=== PATIENT | female | born 1930 | race Caucasian/White ===

== ENCOUNTER 2016-11-19 03:36 | Emergency (ER) | payer OTHER ==
[~2016-11-19] VITALS: Ht 165.1 cm; Wt 45.4 kg
[~2016-11-19 03:36] MED LIST: ASPIR 8181 M1 PO; ASPIR 8181 MG PO; CALCIUM 500 +1 EAC5 PO; COLACE100 MG PO; COUMADIN 5 MG TA5 M1 PO; COUMADIN7.5 MG PO; DELTA D3400 UNIT PO; DILTIAZEM 24HR120 M2 PO; DILTIAZEM 24HR240 M2 PO; ENALAPRIL MALEA10 M1 PO; FENTANYL PA25 MCG/HR TRANSDERM; FISH OIL OMEGA1 EAC1 PO; FLOVENT HFA 1110 MCG IH; MACROBID 100 M100 M2 PO; MIRALAX17 GM PO; MONTELUKAST SOD10 MG PO; MULTIVITAMINS1 EAC7 PO; PERCOCET PO; PRAVACHOL40 MG PO; SINGULAIR 10 MG10 M1 PO; TOPROL XL100 MG PO; TYLENOL325 MG PO; ULTRAM 50MG TAB50 MG PO; VENTOLIN HFA 1818 GM INH; VITAMIN D1000 UNI1 PO; [UNRECOGNIZED DRUG - OTHER] PO
[2016-11-19] MEDS ORDERED: CEFDINIR300 MG PO (03:52)
[2016-11-19] MEDS ORDERED: CALCIUM ACETAT667 MG (03:52)
[2016-11-19] MEDS ORDERED: DILTIAZEM 24HR240 M2 PO (03:53)
[2016-11-19] MEDS ORDERED: VASOTEC10 MG (03:53)
[2016-11-19] MEDS ORDERED: TRADJENTA5 MG (03:53)
[2016-11-19] MEDS ORDERED: MIRALAX17 GM PO (03:54)
[2016-11-19] MEDS ORDERED: LOPRESSOR50 PO (03:54)
[2016-11-19] MEDS ORDERED: PRAVACHOL80 MG (03:55)
[2016-11-19] MEDS ORDERED: CENTRUM SILVER1 EAC4 PO (03:55)
[2016-11-19] MEDS ORDERED: PREDNISONE 10 M10 MG PO (03:56)
[2016-11-19] MEDS ORDERED: TYLENOL325 MG PO (03:57)
[2016-11-19] MEDS ORDERED: TUBERSOL1 ML/1 VIA (03:57)
[2016-11-19] MEDS ORDERED: VITAMIN D3400 UNI1 (03:58)
[2016-11-19 03:59] LABS: HEMATOCRIT 35.7 % (37.0-47.0); MCH 28.5 pg (26.0-34.0); MCHC 33.8 g/dL (28.0-37.0); MCV 84.5 fL (80.0-100.0); PLATELET COUNT 401 thou/uL (150-400); RBC 4.22 mil/uL (4.20-5.00); RDW 13.8 % (10.5-14.5); WBC 17.5 thou/uL (4.0-11.0)
[2016-11-19 04:02] LABS: MANUAL DIFF YES
[2016-11-19 04:06] LABS: CALCIUM 9.6 mg/dL (8.5-10.1); CREATININE 0.7 mg/dL (0.6-1.0); POTASSIUM 3.4 mmol/L (3.5-5.1)
[2016-11-19 04:11] LABS: INR 3.1; PROTIME 31.4 Seconds (9.3-11.4)
[2016-11-19 05:41] LABS: ABSOLUTE NEUTROPHILS 14.9 thou/uL (1.4-8.2); ANISOCYTOSIS SLIGHT; METAMYELOCYTES 1 %; MYELOCYTES 2 %; TOTAL CELL COUNT 100
== END 2016-11-19 06:07 ==
LOC: ER 03:36
PROVIDERS: Emergency Medicine
DX: M25.552 Pain in left hip (principal); Z90.710 Acquired absence of both cervix and uterus; I48.91 Unspecified atrial fibrillation; I10 Essential (primary) hypertension; J45.909 Unspecified asthma, uncomplicated; E11.9 Type 2 diabetes mellitus without complications; Z98.890 Other specified postprocedural states; Z88.5 Allergy status to narcotic agent; Z88.2 Allergy status to sulfonamides; F10.99 Alcohol use, unspecified with unspecified alcohol-induced disorder; W18.39XA Other fall on same level, initial encounter; Y93.89 Activity, other specified; Y92.89 Other specified places as the place of occurrence of the external cause; Y99.8 Other external cause status

== ENCOUNTER 2017-08-29 09:45 | Inpatient (IN) | payer OTHER ==
[~2017-08-29] VITALS: Ht 162.6 cm; Wt 41.0 kg
--- NOTE | ~2017-08-29 | EKG ---
[place] [address] [facility] [employer] [facility] [place] [address] ELECTROCARDIOGRAM REPORT Name: RADHAJOHNNIE Room #: 353-P ADM IN M.R.#: [id number] Admission: 08/29/17 Attend Phys: James Rice MD Discharge: Date of : 34 Report #: [id number] THIS REPORT FOR: //name// 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1930 Requested By: Chu Nur Order Number: [id number] MD: Cole Turner Measurements Intervals [place] Rate: 115 P: CA: QRS: 34 QRSD: 90 T: -42 QT: 277 QTc: 383 Interpretive Statements Atrial fibrillation Low voltage, extremity leads Nonspecific ST and T wave abnormality Poor R wave progression Compared to ECG 04/04/2005 12:37:24 Premature ventricular complexes no longer present atrial fibrillation has replaced sinus rhythm Electronically Signed On 08-31-2017 7:27:22 ARMORED CAR DRIVER by Cole Turner [email or web address] <ELECTRONICALLY SIGNED> By: Cole Turner MD, [facility] 08/31/17 0727 1005 1005 Cole Turner MD, [facility] /EPI
[~2017-08-29 09:45] MED LIST changes: +CALCIUM ACETAT667 MG; +CEFDINIR300 MG PO; +CENTRUM SILVER1 EAC4 PO; +LOPRESSOR50 PO; +PRAVACHOL80 MG; +PREDNISONE 10 M10 MG PO; +TRADJENTA5 MG; +TUBERSOL1 ML/1 VIA; +VASOTEC10 MG; +VITAMIN D3400 UNI1
[2017-08-29 09:56] VITALS: BP 125/77
[2017-08-29 10:49] LABS: ABSOLUTE NEUTROPHILS 10.6 thou/uL (1.4-8.2); BASOPHILS 0.5 % (0.0-2.0); EOSINOPHILS 0.1 % (0.0-3.0); HEMATOCRIT 38.6 % (37.0-47.0); HEMOGLOBIN 12.8 gm/dL (12.0-15.0); LYMPHOCYTES 2.6 % (24.0-44.0); MCH 28.7 pg (26.0-34.0); MCHC 33.2 g/dL (28.0-37.0); MCV 86.5 fL (80.0-100.0); MONOCYTES 5.9 % (1.0-8.0); PLATELET COUNT 153 thou/uL (150-400); POLYS 90.9 % (36.0-66.0); RBC 4.46 mil/uL (4.20-5.00); RDW 13.8 % (10.5-14.5); WBC 11.7 thou/uL (4.0-11.0)
[2017-08-29 10:53] LABS: ANION GAP 9 mmol/L (7-16); BUN 20 mg/dL (7-18); CALCIUM 9.2 mg/dL (8.5-10.1); CHLORIDE 104 mmol/L (98-107); CO2 28 mmol/L (21-32); CREATININE 1.2 mg/dL (0.6-1.0); GLUCOSE 260 mg/dL (74-106); POTASSIUM 3.8 mmol/L (3.5-5.1); SODIUM 141 mmol/L (136-145)
[2017-08-29 10:56] LABS: APTT 38.5 Seconds (24.5-32.8); INR 3.3; PROTIME 33.3 Seconds (9.3-11.4)
[2017-08-29 11:01] LABS: TROPONIN-I < 0.04 ng/mL (<0.06)
[2017-08-29 12:29] VITALS: BP 115/64
[2017-08-29 12:40] LABS: URINE BILIRUBIN NEGATIVE (Negative); URINE BLOOD 3+ (Negative); URINE CLARITY CLEAR; URINE COLOR YELLOW; URINE GLUCOSE-RANDOM* NEGATIVE (Negative); URINE KETONES NEGATIVE (Negative); URINE LEUKOCYTES NEGATIVE (Negative); URINE NITRITE NEGATIVE (Negative); URINE PROTEIN (DIPSTICK) NEGATIVE (Negative); URINE SPECIFIC GRAVITY 1.015 (1.005-1.035); URINE UROBILINOGEN 0.2 E.U./dl (0.2-1.0)
[2017-08-29 12:41] VITALS: BP 116/58
[2017-08-29 13:39] LABS: CASTS None Seen /LPF (None Seen); CRYSTALS None Seen /LPF (None Seen); SQUAMOUS 0-3 Few /LPF (0-3); URINE RBC >20 Many /HPF (0-2); URINE WBC 0-5 Rare /HPF (0-5)
[2017-08-29 13:40] LABS: BACTERIA 1-9 Few /HPF (None Seen)
[2017-08-29] MEDS ORDERED: COUMADIN 5 MG TA5 M1 PO (14:22)
[2017-08-29] MEDS ORDERED: CALCIUM 600 +1 EAC1 PO (14:24)
[2017-08-29] MEDS ORDERED: VENTOLIN HFA 1818 GM INH (14:25)
[2017-08-29] MEDS ORDERED: MIRALAX17 GM PO (14:25)
[2017-08-29] MEDS ORDERED: FLOVENT HFA 4444 MCG INH (14:26)
[2017-08-29] MEDS ORDERED: ESTRADIOL 1 MG T1 M1 PO (14:26)
[2017-08-29] MEDS ORDERED: TRADJENTA5 MG PO (14:27)
[2017-08-29] MEDS ORDERED: TRAMADOL 50 MG50 MG PO (14:28)
[2017-08-29] MEDS ORDERED: CARDIZEM CD120 MG PO (14:29)
[2017-08-29 15:26] VITALS: BP 99/65
[2017-08-29 20:20] VITALS: BP 120/60
[2017-08-29 23:30] VITALS: BP 118/64
[2017-08-30 04:10] VITALS: BP 124/80
[2017-08-30 08:33] VITALS: BP 134/84
[2017-08-30 17:03] VITALS: BP 134/76
[2017-08-30 20:07] VITALS: BP 130/65
[2017-08-31 03:47] VITALS: BP 123/77
[2017-08-31 06:23] LABS: PROTIME 11.6 Seconds (9.3-11.4)
[2017-08-31 06:28] LABS: CALCIUM 9.4 mg/dL (8.5-10.1); CREATININE 0.8 mg/dL (0.6-1.0)
[2017-08-31 06:32] LABS: INR 1.1
[2017-08-31 08:20] VITALS: BP 120/69
[2017-08-31 09:31] LABS: CALCIUM 9.5 mg/dL (8.5-10.1); CREATININE 0.8 mg/dL (0.6-1.0)
[2017-08-31 14:03] VITALS: BP 149/88
[2017-08-31 16:00] VITALS: BP 135/86
[2017-08-31 20:20] VITALS: BP 140/83
[2017-09-01 05:20] VITALS: BP 138/73
[2017-09-01 09:02] VITALS: BP 127/59
[2017-09-01 11:35] VITALS: BP 116/62
[2017-09-01 17:23] VITALS: BP 140/83
[2017-09-01 20:15] VITALS: BP 129/78
[2017-09-02 04:25] VITALS: BP 118/71
[2017-09-02 07:08] VITALS: BP 145/86
[2017-09-02] MEDS ORDERED: PREDNISONE 10 M10 MG PO (07:51)
[2017-09-02] MEDS ORDERED: CEFDINIR300 MG PO (07:51)
[2017-09-02 11:08] VITALS: BP 132/69
[2017-09-02 12:34] VITALS: BP 132/69
[2017-09-02 13:19] VITALS: BP 132/69
== END 2017-09-02 14:11 | disposition home health service (06) | DRG 291 ==
LOC: ER 09:45 → 3W 11:43 → EROBS 11:43 → 3W 12:42
PROVIDERS: Family Medicine; Nurse Practitioner
DX: I11.0 Hypertensive heart disease with heart failure (principal); N17.0 Acute kidney failure with tubular necrosis; I50.23 Acute on chronic systolic (congestive) heart failure; I48.91 Unspecified atrial fibrillation; J22 Unspecified acute lower respiratory infection; R53.81 Other malaise; E87.6 Hypokalemia; M81.0 Age-related osteoporosis without current pathological fracture; J45.909 Unspecified asthma, uncomplicated; E11.9 Type 2 diabetes mellitus without complications; F10.10 Alcohol abuse, uncomplicated; Z88.2 Allergy status to sulfonamides; Z88.6 Allergy status to analgesic agent; Z79.899 Other long term (current) drug therapy; Z90.710 Acquired absence of both cervix and uterus
CPT/HCPCS: 10879

== ENCOUNTER → 2019-10-03 | Outpatient (CLI) | payer OTHER ==
[~2019-10-03] MED LIST changes: +CALCIUM 600 +1 EAC1 PO; +CARDIZEM CD120 MG PO; +ESTRADIOL 1 MG T1 M1 PO; +FLOVENT HFA 4444 MCG INH; +TRADJENTA5 MG PO; +TRAMADOL 50 MG50 MG PO
== END ==
LOC: SJCVC 10:46
DX: R94.31 Abnormal electrocardiogram [ECG] [EKG] (principal); I11.9 Hypertensive heart disease without heart failure; I48.21 Permanent atrial fibrillation; E78.5 Hyperlipidemia, unspecified; Z79.01 Long term (current) use of anticoagulants; J45.909 Unspecified asthma, uncomplicated; Z90.710 Acquired absence of both cervix and uterus; Z79.899 Other long term (current) drug therapy; Z86.73 Personal history of transient ischemic attack (TIA), and cerebral infarction without residual deficits

== ENCOUNTER 2020-03-31 13:17 | Inpatient (IN) | payer OTHER ==
[~2020-03-31] VITALS: Ht 167.6 cm; Wt 42.9 kg
--- NOTE | ~2020-03-31 | EMS ---
[address] [address] EMS Patient Care Report Name: JOHNNIE GARCIA Room #: REG Daniel#: [id number] Admission: 03/31/20 Attend Phys: Discharge: Date of : 32 Report #: [id number] THIS REPORT FOR: //name// Report Transmitted: 03/31/2020 13:56 EMS Care Summary [place], [place]/[facility] Incident [id number] @ 03/31/2020 12:47 Incident Location [address] Patient JOHNNIE GARCIA Female, 89 Years 1930 Patient Address [address] [place] [address] [address] [place] [address] Patient History Asthma, Patient Allergies Codeine,Sulfa, Patient Medications Metoprolol, Ventolin, Flovent, Eliquis, Chief Complaint ALTERED LEVEL OF CONSCIOUSNESS Disposition Transported No Lights/[place] Dispatch Reason Sick Person Transported To [place] Narrative M528 ARRIVES TO FIND 89 Y/O F PT "NOT ACTING RIGHT" PER FAMILY ON SCENE. FAMILY STATES THEY CHECKED ON HER THIS MORNING AND SHE WAS "TALKING GIBBERISH" PT LAST SEEN NORMAL AT 10PM LAST NIGHT. [address] [address] EMS Patient Care Report Name: JOHNNIE GARCIA Room #: REG Holly.#: [id number] Admission: 03/31/20 Attend Phys: Discharge: Date of : 32 Report #: [id number] ASSESSMENTS AND TREATMENTS NOTED. 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 PT MOVED TO AMBULANCE. PT TRANSPORTED. M528 ARRIVES AT DESTINATION. PT MOVED TO ROOM IN ED. PT MOVED TO BED IN ROOM VIA DRAWSHEET METHOD. PT CARE TRANSFERRED. M528 RETURNS TO SERVICE. Initial Vitals @12:58P: 165,BP: 114/70,CO: 2,SpO2: 93, @13:11P: 150,R: 22,BP: 137/90,Pain: 0/10,GCS: 14,SpO2: 100,Revised Trauma: 12, @12:57P: 156,R: 22,Pain: 0/10,GCS: 14,Glucose: 180,CO: 2,SpO2: 88, Assessments @12:57MENTAL:Confused,SKIN:Cold,HEENT:LUNG SOUNDS:ABDOMEN:PELVIS//GI:EXTREMITIES:Right Arm: Weakness,Left Arm: Weakness,Left Leg: Weakness,Right Leg: Weakness,PULSE:NEURO:@13:07MENTAL:Confused,SKIN:Cold,HEENT:Head/Face: No Abnormalities,Eyes: No Abnormalities,Neck/Airway: No Abnormalities,LUNG SOUNDS:General: No Abnormalities,Left Upper: No Abnormalities,Right Upper: No Abnormalities,Left Lower: No Abnormalities,Right Lower: No Abnormalities,ABDOMEN:General: No Abnormalities,Left Upper: No Abnormalities,Right Upper: No Abnormalities,Left Lower: No Abnormalities,Right Lower: No Abnormalities,PELVIS//GI:No Abnormalities,EXTREMITIES:Left Leg: Weakness,Right Leg: Weakness,Left Arm: Weakness,Right Arm: Weakness,PULSE:NEURO:No Abnormalities, Impression Altered Mental Status Procedures @12:57ALS AssessmentResponse: UnchangedSucceeded@13:03Saline Lock 0cc (20 ga) Site: Antecubital-LeftResponse: UnchangedFailed@12:583-Lead ECGResponse: UnchangedSucceeded@13:05Saline Lock 0cc (20 ga) Site: Forearm-RightResponse: UnchangedSucceeded@13:00Oxygen FlowRate: 6 Device: Nasal Cannula (NC) Response: ImprovedSucceeded Timeline 12:46,Call Received 12:46,Dispatch Notified 12:47,Dispatched 12:50,En Route 12:53,On Scene 12:55,At Patient 12:57,ALS Assessment,Response: UnchangedSucceeded, 12:57,BP: / M,PULSE: 156,RR: 22 R,SPO2: 88 Ox,ETCO2: ,B,PAIN: 0,GCS: 14, 12:58,3-Lead ECG,Response: UnchangedSucceeded, 12:58,BP: 114/70 M,PULSE: 165,RR: R,SPO2: 93 Ox,ETCO2: ,BG: ,PAIN: ,GCS: , 13:00,Oxygen FlowRate: 6 Device: Nasal Cannula (NC) Response: [facility] [address] [place] [address] EMS Patient Care Report Name: RADHAJOHNNIE Room #: [facility] SHALOM Sanchez#: [id number] Admission: 03/31/20 Attend Phys: Discharge: Date of : 32 Report #: [id number] 13:03,Saline Lock 0cc 20 ga Site: Antecubital-Left,Response: UnchangedFailed, 13:05,Saline Lock 0cc 20 ga Site: Forearm-Right,Response: UnchangedSucceeded, 13:06,Depart Scene 13:11,BP: 137/90 M,PULSE: 150,RR: 22 R,SPO2: 100 Ox,ETCO2: ,BG: ,PAIN: 0,GCS: 14, 13:12,At Destination 13:27,Call Closed Disclaimer v1.1 Copyright 2020 [employer] This EMS Care Summary contains data elements from the applicable legal record (which may be displayed differently). It is designed to provide pertinent information for the following purposes: continuity of care, clinical quality, and state data reporting. The complete legal record is available to ED staff and administrators of the receiving hospital in [facility]'s Patient Tracker. All data is provided "as is."
[2020-03-31 13:26] VITALS: BP 119/92
[2020-03-31 13:51] LABS: ABSOLUTE NEUTROPHILS 6.2 thou/uL (1.4-8.2); BASOPHILS 0.8 % (0.0-2.0); EOSINOPHILS 0.3 % (0.0-3.0); HEMATOCRIT 42.6 % (37.0-47.0); LYMPHOCYTES 15.1 % (24.0-44.0); MCH 29.7 pg (26.0-34.0); MCHC 32.8 g/dL (28.0-37.0); MCV 90.5 fL (80.0-100.0); MONOCYTES 11.1 % (1.0-8.0); PLATELET COUNT 225 thou/uL (150-400); POLYS 72.7 % (36.0-66.0); RDW 15.1 % (10.5-14.5); WBC 8.5 thou/uL (4.0-11.0)
[2020-03-31 14:04] LABS: CREATININE 1.2 mg/dL (0.6-1.0); POTASSIUM 4.6 mmol/L (3.5-5.1)
[2020-03-31 14:09] LABS: URINE BLOOD 3+ (Negative); URINE CLARITY SL CLOUDY; URINE COLOR YELLOW; URINE GLUCOSE-RANDOM* NEGATIVE (Negative); URINE KETONES TRACE (Negative); URINE NITRITE-REFLEX NEGATIVE (Negative); URINE PROTEIN (DIPSTICK) 2+ (Negative); URINE UROBILINOGEN 0.2 E.U./dl (0.2-1.0)
[2020-03-31 14:15] LABS: MAGNESIUM 2.3 mg/dL (1.8-2.4); TROPONIN-I 0.14 ng/mL (<0.06)
[2020-03-31 14:16] LABS: URINE LEUKOCYTES-REFLEX 1+ (Negative)
[2020-03-31 14:17] LABS: ICTOTEST (BILI CONFIRMATORY) Negative (Negative); URINE BILIRUBIN NEGATIVE (Negative)
[2020-03-31 14:21] LABS: BACTERIA-REFLEX >30 Many /HPF (None Seen); CASTS None Seen /LPF (None Seen); CRYSTALS None Seen /LPF (None Seen); SQUAMOUS 0-3 Few /LPF (0-3); URINE WBC-REFLEX 6-15 Few /HPF (0-5)
[2020-03-31 14:22] LABS: MUCUS 0-3 Light strn/LPF (None Seen); URINE RBC >20 Many /HPF (0-2)
[2020-03-31 15:02] LABS: INR 1.1; PROTIME 11.7 Seconds (9.3-11.4)
[2020-03-31 15:32] LABS: BE(vivo) -3.4 mmol/L (-2 to +3); PCO2 28.1 mmHg (35.0-45.0); PO2 65.4 mmHg (80.0-100.0); pH 7.449 (7.360-7.450)
[2020-03-31] MEDS ORDERED: JANTOVEN5 MG PO (15:44)
[2020-03-31] MEDS ORDERED: METOPROLOL SUCC25 M1 PO (15:45)
[2020-03-31] MEDS ORDERED: DILT-XR240 M1 PO (15:46)
[2020-03-31] MEDS ORDERED: TIADYLT ER120 MG PO (15:49)
[2020-03-31 16:14] VITALS: BP 108/64
[2020-03-31 19:05] VITALS: BP 106/70
--- NOTE | 2020-03-31 19:25 | NUR ---
VERBAL ORDER PER DR. CARUSO TO CONTINUE SOFT RESTRAINTS THROUGH THE NIGHT AND HE WILL SEE THE PATIENT IN THE MORNING. HE ORDERED 40MG OF GEODON PO IF NEEDED ON THE FLOOR.
[2020-04-01 04:21] VITALS: BP 124/61
[2020-04-01 08:16] VITALS: BP 121/61
[2020-04-01 08:29] LABS: HEMATOCRIT 40.6 % (37.0-47.0); HEMOGLOBIN 12.8 gm/dL (12.0-15.0); MCH 29.4 pg (26.0-34.0); MCHC 31.6 g/dL (28.0-37.0); MCV 92.9 fL (80.0-100.0); RBC 4.37 mil/uL (4.20-5.00); RDW 15.6 % (10.5-14.5); WBC 9.4 thou/uL (4.0-11.0)
[2020-04-01 08:52] LABS: CALCIUM 9.3 mg/dL (8.5-10.1); POTASSIUM 3.5 mmol/L (3.5-5.1)
[2020-04-01 12:15] VITALS: BP 132/65
[2020-04-01 15:44] VITALS: BP 127/63
--- NOTE | 2020-04-01 18:20 | NUR ---
ASSUMED PATIENT CARE AT 0700. ALERT. CONFUSED, RESTLESS. RESTRAINT OFF AT 1500. PATIENT STILL ON CARDIEM GTT AT 5ML/HR. REFUSED EAT AND DRINK. NOT TOWARDS POC GOALS.
[2020-04-01 19:32] VITALS: BP 113/72
[2020-04-02 03:28] VITALS: BP 125/72
--- NOTE | 2020-04-02 06:23 | NUR ---
Pt. very fidgety and restless at start of shift. She has been repositioned and got cleaned for bladder incontinence. Few minutes later when checked on her , she managed to pull out her IV and handed it to me. New IV placed on left upper arm. A fib with controlled rate at rest then when she gets fidgety HR in the 120's. Cardizem gtt. infusing at 5mg/hr then titrated up to 10 mg/hr this am. Bed alarm on for safety. HS med given with pudding. She slept till around 0300. Woke up smiling and trying to get out of bed stating she needs to get started for the day. Reoriented frequently.
[2020-04-02 07:57] VITALS: BP 132/79
[2020-04-02 08:00] LABS: HEMATOCRIT 39.7 % (37.0-47.0); HEMOGLOBIN 12.7 gm/dL (12.0-15.0); MCH 29.6 pg (26.0-34.0); MCHC 32.1 g/dL (28.0-37.0); MCV 92.2 fL (80.0-100.0); RBC 4.31 mil/uL (4.20-5.00); RDW 15.7 % (10.5-14.5); WBC 9.1 thou/uL (4.0-11.0)
--- NOTE | 2020-04-02 08:07 | EKG ---
[facility] [place] [address] ELECTROCARDIOGRAM REPORT Name: JOHNNIE GARCIA Room #: 362-P ADM IN M.R.#: [id number] Admission: 03/31/20 Attend Phys: James Rice MD Discharge: Date of : 32 Report #: [id number] THIS REPORT FOR: cc: James Rice MD, Neal A. MD Couchonnal, Luis F. 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 : 1930 Requested By: Polo Brown Order Number: [id number] MD: Yaya Luciano Measurements Intervals [place] Rate: 172 P: WI: QRS: 225 QRSD: 115 T: 90 QT: 289 QTc: 489 Interpretive Statements Atrial fibrillation with rapid V-rate Anterior infarct, old Nonspecific T abnormalities, lateral leads Compared to ECG 08/29/2017 10:05:47 Myocardial infarct finding now present T-wave abnormality now present ST (T wave) deviation no longer present Poor R-wave progression no longer present Electronically Signed On 04-02-2020 8:07:40 CDT by Yaya Luciano [email or web address] <ELECTRONICALLY SIGNED> By: Yaya Luciano MD 04/02/20 0807 22 132 Yaya Luciano MD /EPI
[2020-04-02 08:16] LABS: CALCIUM 9.5 mg/dL (8.5-10.1); CREATININE 0.7 mg/dL (0.6-1.0); POTASSIUM 4.2 mmol/L (3.5-5.1)
--- NOTE | 2020-04-02 10:18 | NUR ---
WOUND CARE CONSULT; CONFUSED BUT COOPERATIVE, ASSESSED SACRAL AREA, NO SKIN BREAKDOWN, HEELS INTACT, FRAIL. WILL ORDER LOW AIR PUMP TO BED, INCONT, ENCOURAGED TO TURN, OFF LOADING. PRESSURE RELIEF, DISCUSSED SKIN STATUS W/ SCHOOL SUPERINTENDENT, RECONSULT TEACHER EDUCATION INSTRUCTOR IF SKIN BREAKDOWN OCCURS RECOMMENDATIONS; SKIN BARRIER IE Z GUARD SACRAL AREA DUE TO INCONT. LOW AIR LOSS PUMP TO BED, ENCOURAGED TURNING AT LEAST Q2 HOURS, OFF LOADING SCHOOL SUPERINTENDENT AWARE
[2020-04-02 12:28] VITALS: BP 135/97
[2020-04-02 16:21] VITALS: BP 115/72
--- NOTE | 2020-04-02 18:17 | NUR ---
ASSUMED PATIENT CARE AT 0700. ALERT TO SELF. CONFUSED AND RESTLESS ON BED. PATIENT CHOKED ON APPLE SAUCE WITH MEDS. ST CONSULTED. PATIENT IS NOP NOW. FAMILY AND DR TAN UPDATED. CARDIZEM AT 5ML/HR. NOT TOWARDS POC GOALS.
[2020-04-02 20:09] VITALS: BP 131/82
[2020-04-03 04:50] VITALS: BP 114/48
[2020-04-03 05:18] VITALS: BP 114/48
--- NOTE | 2020-04-03 06:42 | NUR ---
FOLLOWING POC WITH IVF GTT AND IVPB ANTIBIOTICS. Q2 TURN AND LOW LOSS AIR PUMP ON BED. Z GUARD TO SACRAL AREA. PT IS INCONTINENT, PLACED EXTERNAL FEMALE CATH. PT RESTED COMFORTABLY ALL NIGHT. VSS, TELE SHOWS AFIB.
[2020-04-03 07:29] VITALS: BP 108/67
[2020-04-03 08:44] LABS: HEMATOCRIT 43.6 % (37.0-47.0); HEMOGLOBIN 13.7 gm/dL (12.0-15.0); MCH 29.3 pg (26.0-34.0); MCHC 31.4 g/dL (28.0-37.0); MCV 93.5 fL (80.0-100.0); RBC 4.67 mil/uL (4.20-5.00); RDW 16.2 % (10.5-14.5); WBC 9.5 thou/uL (4.0-11.0)
[2020-04-03 08:58] LABS: ALBUMIN 2.8 g/dL (3.4-5.0); CALCIUM 9.6 mg/dL (8.5-10.1); POTASSIUM 5.3 mmol/L (3.5-5.1); TOTAL BILIRUBIN 0.7 mg/dL (0.2-1.0)
[2020-04-03 11:13] LABS: INR 1.7
[2020-04-03 12:17] VITALS: BP 110/78
--- NOTE | 2020-04-03 13:09 | NUR ---
INITIAL ASSESSMENT: Received consult. LORENZO reviewed chart and spoke with nursing. Pt was admitted from [facility] due to AMS/Weakness. Pt placed in Enhanced Isolation to r/o COVID-19. Pt has had negative COVID test. Pt is afebrile and not requiring O2. Pt is on IV abx. Palliative care physician consulted. Pt to have video swallow today. LORENZO spoke with pt's son, Jon, via phone. Introduced role of LORENZO. Pt [place] living [place] in [place] apt at [facility] for the past 5 years. Pt has been independent with ADLs. Pt has been receiving some assistance with laundry. Pt's meals are provided by the facility and are delivered to her apt. Pt's family have noticed pt declining over the past several weeks. Pt has stopped communicating with family via email. Pt is PAUMA and has difficulty communicating via phone. Pt has been to [facility] in the past. Pt's son would like a referral to be sent to [facility] for review. LORENZO faxed referral and COVID test results to [facility]. LORENZO notified [facility] liaison of new referral. LORENZO is following to assist as needed with discharge planning.
[2020-04-03 15:10] VITALS: BP 105/51
--- NOTE | 2020-04-03 17:00 | NUR ---
ASSUMED PATIENT CARE AT 0700. ALERT, CONFUSED. FAILED VIDEO SWALLOW TEST. NPO NOW. CARDIZEM GTT OFF AT 1600. AFIB ON MONITOR HR 75-85/M. VSS. TRANSFERING PATIENT TO [facility] NOW. FAMILY NOTIFIED.
--- NOTE | 2020-04-03 17:30 | NUR ---
dr mendes passed on that he will reach out to pt and family rt video swallow results.
--- NOTE | 2020-04-03 17:32 | NUR ---
PT TRANSFERED TO THE UNIT VIA WHEELCHAIR FROM 3W. ASSESSMENT CHARTED - REPORTED THAT PATIENT IS NPO FAILED VIDEO SWALLOW THIS SHIFT. ATT,EPTED TO ORIENT PATIENT TO BED SPACE. PT CONFUSED AND MUMBLING. IV FLUIDS ORDERED. APPEARS TO BE COMFOPRTABLE AT THE PRESENT TIME.
[2020-04-03 20:30] VITALS: BP 101/57
[2020-04-04 00:44] VITALS: BP 120/65
[2020-04-04 04:45] VITALS: BP 108/57
[2020-04-04 05:59] LABS: PROTIME 20.1 Seconds (9.3-11.4)
--- NOTE | 2020-04-04 06:16 | NUR ---
PT SLEPT THROUGHT THE NIGHT. INCONTINENT OF BOWEL. DENIES PAIN. WILL CONTINUE TO MONITOR
[2020-04-04 06:45] LABS: HEMATOCRIT 38.4 % (37.0-47.0); HEMOGLOBIN 12.3 gm/dL (12.0-15.0); MCH 29.6 pg (26.0-34.0); MCHC 31.9 g/dL (28.0-37.0); MCV 92.8 fL (80.0-100.0); RBC 4.14 mil/uL (4.20-5.00); WBC 8.5 thou/uL (4.0-11.0)
[2020-04-04 06:56] LABS: CALCIUM 8.9 mg/dL (8.5-10.1); CREATININE 0.9 mg/dL (0.6-1.0)
[2020-04-04 07:01] LABS: POTASSIUM 4.2 mmol/L (3.5-5.1)
[2020-04-04 07:59] VITALS: BP 126/45
[2020-04-04 15:59] VITALS: BP 138/64
--- NOTE | 2020-04-04 19:10 | NUR ---
ASSESSMENT CHARTED. PT ALERT TO PERSON. AFIB ON TELE. ON CARDIZEM DRIP. DR. DIMAS UPDATED SON ON PT'S PLAN OF CARE. SPEECH CONSULTED TO RE-EVALUATE PT. NO CONCERNS AT THIS.
[2020-04-04 20:26] VITALS: BP 130/65
[2020-04-05 01:17] VITALS: BP 124/70
[2020-04-05 03:34] VITALS: BP 130/67
--- NOTE | 2020-04-05 04:00 | NUR ---
ASSUMED CARE 1900. PT AWAKE, A LITTLE RESTLESS. INCONTINENT OF BOTH BLADDER AND BOWEL. CARDIZEM MAINTAINED AT 5ML/HR IN THE LOWER 100s. NO APPARENT PAIN. WILL CONTINUE TO MONITOR AND FOLLOW POC
[2020-04-05 06:30] LABS: INR 1.5; PROTIME 15.1 Seconds (9.3-11.4)
[2020-04-05 07:10] VITALS: BP 133/74
[2020-04-05 11:30] VITALS: BP 131/74
--- NOTE | 2020-04-05 13:51 | NUR ---
patient transferred from 3. Noted referral to [place]. Sp with son. Son reports plan for patient to remain in hospital for continued speech therapy. Depending on how patient progresses with ST will determine dc dispostion. Reviewed with son skilled care with medicare coverage. Discussed pallative vs hospice. Reviewed medicare coverage with hospice in facility and home. Son reports patient cannt return home would need 24/7 care and family cannot visit. Depending how patient progresses son would want referral to [facility]. If patient not progressed would be interested in [facility] eval. Updated both Dr Álvarez and Dr Rice.
[2020-04-05 15:40] VITALS: BP 147/67
--- NOTE | 2020-04-05 17:25 | NUR ---
ASSUMED CARE OF PT AT SHIFT CHANGE. ASSESSMENTS CHARTED. MEDS GIVEN PER SEP. PT ALERT TO SELF, SPEECH GARBLED/MUMBLED. PT ON 2 L NC, DESATS WITHOUT O2. NO APPARENT PAIN. CARDIZEM DRIP CONTINUES AT 5, ALTHOUGH RATES FLUCTUATING INTO 120S AND 130S. NPO DIET CHANGED TO PUREED. PT COUGHED SIGNIFICANTLY WITH SEVERAL BITES, HR IN 150-170 DURING THE COUGHING. REMOVED LUNCH TRAY D/T HIGH HR. DR. CARUSO NOTIFIED OF HR, CXR ORDERED. THIS NURSE DID NOT GIVE PT DINNER TRAY D/T HIGH RISK FOR ASPIRATION/CHOKING. NOTIFIED. WILL CONTINUE TO MONITOR.
[2020-04-05 20:01] VITALS: BP 144/70
[2020-04-06 00:17] VITALS: BP 130/62
[2020-04-06 03:58] VITALS: BP 129/75
--- NOTE | 2020-04-06 05:06 | NUR ---
PT ALERT TO SELF, [place], GARBLED SPEECH, PT CALM AND RESTING IN BED MUCH OF THE EVENING, GETS ANXIOUS WHEN INCON'T AND HR ALSO IS ELEVATED BUT IS ABLE TO CALM DOWN WHEN CLEANED UP AND REPOSITIONED, CARDIZEM GTT AND FLUIDS INFUSING IN L AC, FREQUENT ROUNDING , WILL CON'T TO MONITOR PER PPOC.
[2020-04-06 06:29] LABS: HEMATOCRIT 40.9 % (37.0-47.0); HEMOGLOBIN 13.1 gm/dL (12.0-15.0); MCV 90.7 fL (80.0-100.0); RBC 4.5 mil/uL (4.20-5.00); WBC 7.4 thou/uL (4.0-11.0)
[2020-04-06 06:36] LABS: INR 1.3; PROTIME 13.3 Seconds (9.3-11.4)
[2020-04-06 06:42] LABS: ALBUMIN 2.3 g/dL (3.4-5.0); CREATININE 0.6 mg/dL (0.6-1.0); POTASSIUM 3.2 mmol/L (3.5-5.1); TOTAL BILIRUBIN 0.9 mg/dL (0.2-1.0); TOTAL PROTEIN 5.6 g/dL (6.4-8.2)
[2020-04-06 08:33] VITALS: BP 126/74
--- NOTE | 2020-04-06 11:47 | NUR ---
cm received phone call from bedside nurse that pt family at bedside, they have paper work for case management. cm went to [facility], bedside nurse got paperwork and it was dpoa, and living will for alfred. copies to be placed on pt chart, they also requested a reservations and ticketing agent to visit. bedside nurse calling spiritual care for family.
[2020-04-06 13:05] VITALS: BP 141/79
--- NOTE | 2020-04-06 14:05 | NUR ---
dr. mendes informed this cm he did hospice consult w/family. pt's son wants pt to move to [facility] and to use hospice. son wants info on visitation policy for [facility]. cm left for darya, intake, at [facility] - [phone]. cm to f/u w/lodi.
--- NOTE | 2020-04-06 15:30 | NUR ---
THIS GYM ATTENDANT WAS PAGED AT 1113 HOURS. FAMILY WAS WANTING A BOMB TECHNICIAN. THIS GYM ATTENDANT WENT TO MEET WITH THE SON, JUDY. HE WAS MOST CONCERNED HIS MOTHER'S RELATIVES SAID TO MAKE SURE HIS MOTHER GETS ANOINTED BY A BILINGUAL SECRETARY. THE PATIENT WAS ALREADY ANOINTED ON 2019. THIS GYM ATTENDANT PROVIDED ACTIVE LISTENING THE SON DISCUSSED ISSUES HE IS FACING. HIS MOTHER IS NO LONGER ABLE TO SWALLOW, COMMUNICATE AND HAS END STATE DEMEMTNIA. SHE REQUIRES ONE MEDICNE BY IV WHICH SUPPORTS HER LIFE. IF THAT MEDICINE IS DISCONTINUED, SHE WILL . HE SAID HE HAS SPOKEN TO DR. DIMAS AND DISCUSSED EITHER HOSPICE OR SWALLOWING THERAPY. PT. HAS A DNR. SON IS DPOA AND GUARDIAN. WE DISCUSSED END OF LIFE ARRANGEMENTS. HIS OWN IS HAVING SURGERY IN A COUPLE OF WEEKS AND DOES NOT WANT TO POSSIBLLY BE EXPOSED TO COVID-19 AT A . SON WANTS TO HONOR HIS MOTHER WISHES AND KEEP HER BROTHERS AND SISTERS HAPPY. SON WAS RELIEVED WHEN I EXPLAINED ONCE SHE IS EMBALMED THEY COULD, IN THEORY COULD HAVE A NEXT MONTH OR NEXT YEAR, DEPENDING ON THE HOME'S COST TO KEEP HER BODY. WE CONCLUDED IN PRAYER. THE PATIENT WOKE UP AND SMILED REALLY LARGELY AND TRIED TO SPEAK. HER SON SAYS SHE STILL RECOGNIZES HIM. NOT SURE WHAT OTHER SYMPTOMS INDICATING "END OF LIFE" OTHER THAN ONE IV MEDICINE. SORT OF AN ETHICAL DELIMENA: YOU CAN DISCONTINUE ONE MEDICINE AND SHE WILL OR TRY TO FIND A PLACE SHE CAN LIVE IN WITH THAT IV MEDICINE. OTHER THAN THE IV MEDS. PATIENT POSSESSES. A GET EXPOSD TO COVID-19 THERAPY. DEMENTIA
--- NOTE | 2020-04-06 15:55 | NUR ---
sonya spk w/darya at [facility]. darya stated she has a ltc bed, but stated her rn sarita koch had been follow the pt while living at [facility] and recommeded that pt's family contact nicolas wyatt at [phone] to discuss option of "personalized living and/or 24 hour care" if they want pt to rtrn home to her apt. sonya referred info to nida. nida stated he want ltc at [facility] instead of having pt rtrn to her apt. nida stated he will contact nicolas. sonya faxed referral to [facility] [phone] and to [facility] - darya [phone].
--- NOTE | 2020-04-06 16:46 | NUR ---
ASSESSMENT CHARTED - PT NOT GIVEN MEDS THIS AM PO SHE APPEARS TO ASPIRATE ALL PO INTAKE. CALL FROM DR CARUSO THIS AFTERNOON STATING THAT DR DIMAS HAS SPOKEN WITH SON AND PATIENT WILL BE GOING TO HOSPICE CARE SOON AND THAT WE NEED TO GIVE HER MEDS WE NEED TO GET HER OFF THE CARDIZEM DRIP. MEDS WILL BE CRUSHED WHERE ABLE AND PLACED IN APPLESAUCE/ PUDDING TO GIVE TO PATIENT. T REMIANS CONFUSED. SEEN BY PHYS/OCC AND SPEECH THERAPY. PT HEART RATE IN 80'S UNLESS AGGITATED AND THEN RATE JUMPS UP TO THE 130-150'S. PT MUMBLING TO SELF AND PICKING AT THINGS IN THE AIR- ALSO BECOMES AGITATED WHEN INCONTINENT. PT TURNED AND MOUTH CARE GIVEN. APPEARS TO BE COMFORTABLE AT THE PRESENT TIME.
[2020-04-06 17:03] VITALS: BP 152/62
[2020-04-06 20:02] VITALS: BP 122/81
[2020-04-07 05:07] VITALS: BP 135/67
--- NOTE | 2020-04-07 06:39 | NUR ---
ASSUMED CARE OF PATIENT AT 1900. PATIENT AWAKE, UNABLE TO VERBALIZE NEEDS. CARDIZEM GTT INFUSING. NOT PROGRESSING TOWARDS POC GOALS.
[2020-04-07 08:00] VITALS: BP 120/58
[2020-04-07 11:30] VITALS: BP 120/74
[2020-04-07 11:32] LABS: INR 1.5; PROTIME 14.9 Seconds (9.3-11.4)
--- NOTE | 2020-04-07 11:48 | NUR ---
RECEIVED PT'S CARE AROUND 0710; PT. ON BED RESTING WITH EYES CLOSED; AFIB ON THE MONITOR; LESS THAN 100; CARIZEM GTT RUNNING AT 5MG/H; DR. SHADY BARBOSA ON THE MORNING; D/C FLUIDS & CARDIZEM GTT; REQUESTED TO TRY TO GIVE PO MEDICATIONS; CODING COORDINATOR [facility]; DURING ASSESSMENT PT. ALERT TO PERSON; C/O PAIN WHEN TOUCH RLE; ABLE TO GIVE CARDIZEM PO WITH SMALL PORTIONS OF ENSURANCE AND THICKNEN APPLE JUICE; AFTER THRID BITE PT. COUGHING & GURGLING SOUND HEARD; STOPPED FEEDING IMMEDIATELY; REST OF PO MEDS HOLD; REFUSED BREAKFAST; ABLE TO REST AFTER ASSESSMENT; D/C ORDERS ON PLACED; [facility] NOTIFIED DURING PRIME TIME; INFORMATION FROM GAMALIEL TOVAR; CALLED GAMALIEL; VOICE MAIL LEFT; RECEIVED CALL FROM HOSPICE; UPDATE ABOUT POC; NURSE ARRIVED AT FLOOR AROUND 1130 TO EVALUATE PT; PER GAMALIEL PT. ABLE TO BE TRANSFER TO TODAY; 04/07/2020; NURSE NOTIFIED; ASSESSMENT CHARGED; FOLLOWING POC; WORKING ON D/C ORDERS;
== END 2020-04-07 17:56 | disposition hospice, inpatient (51) | DRG 177 ==
LOC: ER 13:17 → EROBS 15:57 → 3W 15:57 → 2N 04-03 16:59
PROVIDERS: Emergency Medicine; ADMIT Family Medicine; ATTEND Family Medicine
DX: J69.0 Pneumonitis due to inhalation of food and vomit (principal); G93.41 Metabolic encephalopathy; E43 Unspecified severe protein-calorie malnutrition; N17.0 Acute kidney failure with tubular necrosis; N39.0 Urinary tract infection, site not specified; F03.91 Unspecified dementia, unspecified severity, with behavioral disturbance; Z68.1 Body mass index [BMI] 19.9 or less, adult; I48.91 Unspecified atrial fibrillation; Z20.828 Contact with and (suspected) exposure to other viral communicable diseases; I10 Essential (primary) hypertension; M81.0 Age-related osteoporosis without current pathological fracture; J45.909 Unspecified asthma, uncomplicated; E11.9 Type 2 diabetes mellitus without complications; R41.0 Disorientation, unspecified; R13.10 Dysphagia, unspecified; Z88.6 Allergy status to analgesic agent; Z88.2 Allergy status to sulfonamides; Z90.710 Acquired absence of both cervix and uterus; Z79.899 Other long term (current) drug therapy
CPT/HCPCS: 10081; 10879